=== PATIENT | female | born 1935 | race Caucasian/White ===

== ENCOUNTER 2018-11-24 15:59 | Emergency (ER) | payer OTHER ==
[2018-11-24 16:13] VITALS: RESP 20; TEMP 97.4
[2018-11-24] MEDS ORDERED: LACTATED RINGERS 1,000 ML IV ONE (16:34)
[2018-11-24 16:37] LABS: BASOPHILS % (AUTO) 1 % (0-3); EOSINOPHILS % (AUTO) 1 % (0-9); HEMATOCRIT 45 % (35-47); HEMOGLOBIN 14.2 gm/dl (12.0-15.5); LYMPHOCYTES % (AUTO) 19.4 % (10-50); MEAN CORPUSCULAR HEMOGLOBIN 29.2 pg (27.0-32.0); MEAN CORPUSCULAR HGB CONC 31.4 gm/dl (32.0-36.0); MEAN CORPUSCULAR VOLUME 93 fL (81-99); MONOCYTES % (AUTO) 6.7 % (0-12); NEUTROPHILS % (AUTO) 72.1 % (37-80)
[2018-11-24 16:42] LABS: CALCIUM 9.3 mg/dl (8.5-10.1); CARBON DIOXIDE 25.5 mEq/L (21-32); CREATININE 1.94 mg/dl (0.60-1.00)
[2018-11-24 16:46] LABS: APPEARANCE,URINE Slightly Cloudy; BILIRUBIN,URINE 1+ (NEGATIVE); COLOR,URINE Yellow; GLUCOSE, URINE (UA) NEGATIVE (NEGATIVE); KETONES,URINE 1+ (NEGATIVE); NITRATE,URINE POSITIVE (NEGATIVE); OCCULT BLOOD,URINE TRACE LYSED (NEG-TRACE); UROBILINOGEN,URINE 0.2 (0.2-1.0 EU)
[2018-11-24 16:49] LABS: LEUKOCYTE ESTERASE ,URINE 3+ (NEGATIVE)
[2018-11-24 16:56] LABS: ICTOTEST,URINE NEGATIVE (NEGATIVE)
[2018-11-24 17:52] VITALS: BP 149/55; PULSE 67; O2SAT 97
== END 2018-11-24 18:10 | disposition home or self-care (01) | DRG 690 ==
LOC: ED 15:59
DX: N39.0 Urinary tract infection, site not specified (principal); R55 Syncope and collapse; W18.30XA Fall on same level, unspecified, initial encounter; I44.7 Left bundle-branch block, unspecified
CPT/HCPCS: 80048; 81003; 85025; 87077; 87088; 87186; 93005; 96365; 99283; 99284